=== PATIENT | female | born 1950 | race Caucasian/White ===

== ENCOUNTER 2018-08-03 07:49 | Day surgery (SDC) | payer MEDICARE, MEDICAID ==
[~2018-08-03 07:49] MED LIST: Lactated Ringers 1,000 ML IV SCH; Sodium Chloride 0.9% 10 ML Syringe FLUSH PRN
[2018-08-03] MEDS ORDERED: Sodium Chloride 0.9% 10 ML Syringe FLUSH PRN (08:00)
[2018-08-03] MEDS ORDERED: Midazolam 1 MG/ML 2 ML SDV ONE (08:02)
[2018-08-03] MEDS ORDERED: Propofol 200 MG/20 ML SDV ONE (08:03)
[2018-08-03] MEDS ORDERED: fentaNYL 250 MCG/5 ML SDV ONE (08:03)
[2018-08-03] MEDS ORDERED: Albuterol 0.083% 2.5 MG/3 ML Neb Soln NEB ONE (08:21)
[2018-08-03] MEDS: Lactated Ringers 1,000 ML IV SCH ×2 (08:38→11:05)
[2018-08-03] MEDS ORDERED: ceFAZolin 1 GM Vial IVPUSH ONE (09:00)
[2018-08-03] MEDS ORDERED: Succinylcholine 200 MG/10 ML MDV IV ONE (09:00)
[2018-08-03] MEDS ORDERED: Neostigmine Methylsulfate 10 MG/10 ML MDV IVPUSH ONE (09:00)
[2018-08-03] MEDS ORDERED: Glycopyrrolate 0.2 MG/ML SDV IVPUSH ONE (09:00)
[2018-08-03] MEDS ORDERED: Rocuronium 100 MG/10 ML MDV IV ONE (09:00)
[2018-08-03] MEDS ORDERED: ceFAZolin 1 GM Vial ONE (09:25)
[2018-08-03] MEDS ORDERED: Dexamethasone 10 MG/ML SDV IVPUSH ONE (10:00)
[2018-08-03] MEDS ORDERED: fentaNYL 100 MCG/2 ML SDV IVPUSH PRN (10:01)
[2018-08-03] MEDS ORDERED: Morphine 2 MG/ML Syringe IVPUSH PRN (10:01)
[2018-08-03] MEDS ORDERED: Ondansetron 4 MG/2 ML SDV IVPUSH PRN (10:01)
[2018-08-03] MEDS ORDERED: Ketorolac 30 MG/ML SDV IVPUSH ONE (10:18)
--- NOTE | 2018-08-03 10:21 | PCM.OPNOTE ---
- General Post-Op/Procedure Note Date of Surgery/Procedure: 08/03/18 Operative Procedure(s): Repair Ventral incisional Hernia Findings: moderate sized midline upper abdominal ventral hernia with preperitoneal fat protruding through it Pre Op Diagnosis: Ventral incisional Hernia Post-Op Diagnosis: Same Anesthesia Technique: General ET Tube Primary Surgeon: Albino Silva Pathology: Hernia sac Output, Urine Amount: 0 EBL in mLs: 20 Complications: None Condition: Good Free Text/Narrative:: Intake & Output 08/02/18 08/03/18 08/03/18 22:59 06:59 14:59 Intake Total 900 Balance 900
[2018-08-03] MEDS ORDERED: Morphine 4 MG/ML Syringe IVPUSH ONE (10:53)
[2018-08-03] MEDS ORDERED: fentaNYL 100 MCG/2 ML SDV IVPUSH ONE (11:10)
[2018-08-03] MEDS ORDERED: Meperidine PF 50 MG/ML Amp IVPUSH ONE (11:37)
[2018-08-03] MEDS ORDERED: hydrOXYzine HCl 50 MG/ML SDV IM ONE (11:53)
--- NOTE | 2018-08-03 15:24 | HP ---
HISTORY OF PRESENT ILLNESS: This 67-year-old female presents today for repair of a ventral incisional hernia. She underwent a cholecystectomy in the past and as part of this operation had an upper abdominal incision. She has developed a bulge in the area of this incision, primarily superior and to the right of the scar. This was initially noted very soon after the gallbladder surgery and has persisted. PAST MEDICAL HISTORY: Includes history of bipolar disorder, diagnoses of anxiety and depression, as well as chronic low back pain. PAST SURGICAL HISTORY: Other previous surgeries include a hysterectomy and appendectomy. HABITS: She is a former smoker. ALLERGIES: She is allergic to aspirin and penicillin. FAMILY HISTORY: Unchanged. SOCIAL HISTORY: Unchanged. PHYSICAL EXAMINATION: VITAL SIGNS: Temperature is 98.4, pulse 86, blood pressure is 115/80. GENERAL: The patient is an adult female. She in no acute distress. HEAD: Normocephalic. HEART: Regular. LUNGS: Clear. No wheezing is noted at this time. ABDOMEN: Soft. There is a palpable mass in the upper mid abdomen, just to the right of the midline. This was just superior to a healed surgical scar in the upper mid abdomen. This is mildly tender. The location of this is confirmed with the patient and it is marked preoperatively. No other abdominal masses are noted. EXTREMITIES: Show no edema. IMPRESSION: 1. Ventral incisional hernia. 2. History of bipolar disorder. 3. Previous smoker. PLAN: Repair of ventral incisional hernia. Informed consent. I have discussed the proposed operative procedure with the patient; reviewed indications, options, and risks. Also reviewed the possible need to place mesh. She appears to understand. Her surgical options have been discussed. She agrees to proceed with an open approach to this hernia repair today. OFELIA Silva MD /[id number]
--- NOTE | 2018-08-03 16:45 | OR ---
Date of Procedure: 08/03/2018 PREOPERATIVE DIAGNOSIS: Ventral incisional hernia. POSTOPERATIVE DIAGNOSIS: Ventral incisional hernia. OPERATION PERFORMED: Repair of ventral incisional hernia with mesh. INDICATIONS FOR SURGERY: This 67-year-old female has developed a symptomatic bulge in the upper portion of her abdomen. This is in an area where she has had previous abdominal surgery. Symptoms and findings were consistent with a ventral incisional hernia, and she comes for elective repair. FINDINGS: In the mid upper abdomen, the patient has a fascial defect in the area of a prior surgical scar. This fascial defect is approximately 5 x 4 cm in size. Through this defect is protruding preperitoneal fat, although there is no evidence of bowel involvement. The surrounding fascia appears of good quality. DESCRIPTION OF PROCEDURE: The patient was taken to the operating room. She was given general endotracheal anesthesia. The abdomen was sterilely prepped and draped. A vertical midline abdominal incision was made over the area of the hernia. Dissection proceeded down to the underlying fascia and the hernia defect was identified. The hernia sac was carefully from the surrounding subcutaneous tissue and the hernia fascial edges identified circumferentially. The fascia was cleared for several centimeters around this defect and appeared solid without any additional defects. The hernia sac was then incised with cautery at the level of the fascia and the hernia contents were amputated above clamps with ties of 2-0 Vicryl used for the vascular pedicles. The edges of the hernia defect were trimmed to provide a good surface for repair and then the hernia defect was closed with interrupted #1 Prolene using a Smead-Ryder suturing technique. Incorporated in these repair sutures on the anterior surface of the fascia was a piece of polypropylene mesh for reinforcement of the repair. This created a secure and reinforced closure of this hernia defect. The peripheral edges of the mesh were trimmed and then tacked down to the underlying fascia with a running 2-0 Vicryl. The wound was irrigated with Ancef and saline solution, which had been used to soak the mesh prior to its placement. The subcutaneous tissue was then approximated with interrupted 4-0 Vicryl and it was also tacked down to the underlying fascia with this suture. The skin was closed with a running 4-0 Vicryl subcuticular stitch. Steri-Strips and benzoin were applied. Antibiotic ointment followed by sterile dressing was placed. The patient was then awakened, extubated, and taken from the operating room in satisfactory condition. ESTIMATED BLOOD LOSS: 20 mL. COMPLICATIONS: None. PROGNOSIS: Good. OFELIA Silva MD /[id number]
[2018-08-04] MEDS ORDERED: ceFAZolin 1 GM Vial IVPUSH ONE (10:45)
== END 2018-08-03 13:38 | disposition home or self-care (01) ==
LOC: LL.SDS 07:49
PROVIDERS: ATTEND Surgery
DX: K43.2 Incisional hernia without obstruction or gangrene (principal); F41.9 Anxiety disorder, unspecified; F32.9 Major depressive disorder, single episode, unspecified; Z88.0 Allergy status to penicillin; Z88.6 Allergy status to analgesic agent; Z90.49 Acquired absence of other specified parts of digestive tract; Z87.891 Personal history of nicotine dependence; Z79.899 Other long term (current) drug therapy
CPT/HCPCS: 94640; C1781; J0330; J0690; J1100; J1885; J2175; J2250; J2270; J2405; J2704; J2710; J3010; J3410; J3490; J7120; J7613-GY

== ENCOUNTER 2018-12-21 10:05 | Day surgery (SDC) | payer MEDICARE, OTHER ==
[2018-12-21] MEDS ORDERED: Sodium Chloride 0.9% 10 ML Syringe FLUSH PRN (10:15)
[2018-12-21] MEDS ORDERED: Lactated Ringers 1,000 ML IV SCH (10:15)
[2018-12-21] MEDS ORDERED: Albuterol/Ipratropium 3.0-0.5 MG/3 ML Neb Soln NEB ONE (10:52)
--- NOTE | 2018-12-21 11:03 | PCM.PN ---
- General Info Date of Service: 12/21/18 - Review of Systems Systems Review Comment:: 68 y/o female here for colonoscopy. She has a 2 year history of diarrhea. She has also had a previous Sigmoid colon resection for diverticular disease. She is medically stable to proceed. Her recent history and physical is reviewed and no significant changes are noted. I have discussed the proposed colonoscopy with the patient. She agrees to proceed accepting risks. - Patient Data Vitals - Most Recent: Last Vital Signs Temp 98.1 F 12/21/18 10:26 Pulse 84 12/21/18 10:26 Resp 20 12/21/18 10:26 BP 147/87 H 12/21/18 10:26 Pulse Ox 96 12/21/18 10:26 Weight - Most Recent: 90.718 kg Med Orders - Current: Current Medications Lactated Ringer's (Ringers, Lactated) 1,000 mls @ 125 mls/hr IV ASDIRECTED STEWART Last Admin: 12/21/18 10:43 Dose: 125 mls/hr Sodium Chloride (Saline Flush) 10 ml FLUSH ASDIRECTED PRN PRN Reason: Keep Vein Open Discontinued Medications Albuterol/Ipratropium (Duoneb 3.0-0.5 Mg/3 Ml) 3 ml NEB ONETIME ONE Stop: 12/21/18 10:53 Last Admin: 12/21/18 10:55 Dose: 3 ml - Problem List Review Problem List Initiated/Reviewed/Updated: Yes - My Orders Last 24 Hours: My Active Orders 12/21/18 10:15 Patient Status [ADT] Routine Peripheral IV Care [RC] . DIRECTED Verify Patient Consent Obtain [RC] ASDIRECTED Lactated Ringers [Ringers, Lactated] 1,000 ml IV ASDIRECTED Sodium Chloride 0.9% [Saline Flush] 10 ml FLUSH ASDIRECTED PRN Peripheral IV Insertion Adult [OM.PC] Routine - Assessment Assessment:: History of diarrhea - Plan Plan:: Colonoscopy
[2018-12-21] MEDS ORDERED: Propofol 200 MG/20 ML SDV ONE (11:05)
--- NOTE | 2018-12-21 11:44 | PCM.OPNOTE ---
- General Post-Op/Procedure Note Date of Surgery/Procedure: 12/21/18 Operative Procedure(s): Colonoscopy with Polypectomy and Biopsy Findings: Sigmoid Colon Polyp Diverticulosis without acute inflammation Hemorrhoids Prior Sigmoid Colectomy with normal appearing anastomosis Pre Op Diagnosis: History of Diarrhea Post-Op Diagnosis: Colon Polyp. Diverticulosis. Hemorrhoids Anesthesia Technique: [facility] [place] Primary Surgeon: Albino Silva Pathology: Colon Polyp Biopsies of Right and Left Colon EBL in mLs: 3 Complications: None Condition: Good
--- NOTE | 2018-12-21 17:13 | OR ---
Date of Procedure: 12/21/2018 PREOPERATIVE DIAGNOSIS: History of diarrhea. POSTOPERATIVE DIAGNOSES: 1. Sigmoid colon polyp. 2. Left colon diverticulosis. 3. External and internal hemorrhoids. OPERATIONS PERFORMED: Colonoscopy with polypectomy and biopsy. INDICATIONS FOR SURGERY: This 68-year-old female was referred for colonoscopy. She has been having some symptoms of diarrhea over the past 2 years. She reports a history of having had a prior sigmoid colon resection. FINDINGS: In the patient's sigmoid colon, 18 cm from the anal verge, there is a semi-pedunculated polyp, 8 mm in size with a smooth surface. No other polyps were seen, but the patient does have extensive diverticulosis with multiple pockets noted in the left colon. These do not appear to be acutely inflamed or otherwise complicated. The patient has had a prior sigmoid colon resection and the anastomosis is widely patent. She also has moderate-sized internal and external hemorrhoids. DESCRIPTION OF PROCEDURE: The patient was taken to the operating room. She was given intravenous sedation and with her in the left lateral decubitus position, digital rectal exam was performed showing no rectal masses. The Olympus colonoscope was inserted into the rectum. Retroflexed examination of the rectal canal was performed. The scope was advanced to the sigmoid colon polyp, which was removed with a cautery snare and retrieved into a polyp trap. The scope was then further advanced through the entire length of the colon until the cecum was reached. Cecal acquisition was confirmed by noting the normal internal cecal anatomy including the appendiceal orifice and the ileocecal valve. The light was also noted to transilluminate the abdominal wall in the right lower quadrant. After examining the cecum, the scope was slowly withdrawn sequentially re-examining the colonic segments. During withdrawal of the scope, random biopsies of the right and left colon were taken because of the patient's symptoms of diarrhea. After the exam had been completed and with no sign of any complication, the scope was removed, and the patient was taken from the operating room in satisfactory condition. ESTIMATED BLOOD LOSS: 3 mL. COMPLICATIONS: None. PROGNOSIS: Good. OFELIA Silva MD /[id number]
== END 2018-12-21 12:44 | disposition home or self-care (01) ==
LOC: LL.SDS 10:05
PROVIDERS: ATTEND Surgery
DX: D12.5 Benign neoplasm of sigmoid colon (principal); K57.30 Diverticulosis of large intestine without perforation or abscess without bleeding; K64.4 Residual hemorrhoidal skin tags; K64.8 Other hemorrhoids; E78.00 Pure hypercholesterolemia, unspecified; E66.9 Obesity, unspecified; J45.20 Mild intermittent asthma, uncomplicated; F31.9 Bipolar disorder, unspecified; F41.9 Anxiety disorder, unspecified; F43.10 Post-traumatic stress disorder, unspecified; G89.4 Chronic pain syndrome; M47.26 Other spondylosis with radiculopathy, lumbar region; M48.02 Spinal stenosis, cervical region; Z68.36 Body mass index [BMI] 36.0-36.9, adult; Z88.0 Allergy status to penicillin; Z88.6 Allergy status to analgesic agent; Z90.49 Acquired absence of other specified parts of digestive tract; Z79.1 Long term (current) use of non-steroidal anti-inflammatories (NSAID); Z79.899 Other long term (current) drug therapy
CPT/HCPCS: 94640; J2704; J7120; J7620-GY

== ENCOUNTER 2023-02-13 22:23 | Observation (INO) | payer MEDICARE, MEDICAID ==
[2023-02-13] MEDS ORDERED: Sodium Chloride 0.9% 10 ML Syringe FLUSH PRN (22:42)
[2023-02-13 22:48] LABS: BASOPHILS ABSOLUTE AUTO 0.06 K/uL (0.00-0.20); BASOPHILS PERCENT AUTO 0.7 % (0.0-2.0); EOSINOPHILS ABSOLUTE AUTO 0.38 K/uL (0.00-0.50); EOSINOPHILS PERCENT AUTO 4.6 % (0.0-5.0); HEMATOCRIT 41.1 % (34.0-46.0); HEMOGLOBIN 13.2 g/dL (11.7-15.5); LYMPHOCYTES ABSOLUTE AUTO 2.08 K/uL (0.50-3.50); LYMPHOCYTES PERCENT AUTO 25.1 % (10.0-50.0); MEAN CORPUSCULAR HGB CONC 32.1 g/dL (31.7-36.0); MEAN CORPUSCULAR VOLUME 99.5 fL (84.0-98.0); MONOCYTES ABSOLUTE AUTO 0.63 K/uL (0.00-1.00); MONOCYTES PERCENT AUTO 7.6 % (2.0-14.0); NEUTROPHILS ABSOLUTE AUTO 5.14 K/uL (1.40-7.00); PLATELET COUNT,PLT 304 K/uL (150-350); RED BLOOD CELL COUNT 4.13 M/uL (3.77-5.09); RED CELL DISTRIBUTION WIDTH 12.5 % (11.2-14.1); WHITE BLOOD CELL COUNT,WBC 8.3 K/uL (4.0-10.2)
[2023-02-13 22:59] LABS: ALANINE AMINOTRANSFERASE,ALT 23 U/L (12-78); ALBUMIN 3.6 g/dL (3.4-5.0); ALKALINE PHOSPHATASE 85 IU/L (46-116); ANION GAP 7.8 meq/L (7-15); ASPARTATE AMNIOTRANSFERASE,AST 21 U/L (15-37); BILIRUBIN TOTAL 0.4 mg/dL (0.2-1.0); BLOOD UREA NITROGEN,BUN 28 mg/dL (7-18); CALCIUM 8.9 mg/dL (8.5-10.1); CARBON DIOXIDE,CO2 27.2 mmol/L (21.0-32.0); CHLORIDE,CL 104 mmol/L (98-107); CREATININE 0.97 mg/dL (0.51-1.17); ETHANOL BLOOD MEDICAL 0.132 g/dL (0.000-0.080); GLUCOSE RANDOM 99 mg/dL (70-99); MAGNESIUM 2.2 mg/dL (1.8-2.4); POTASSIUM,K 3.9 mmol/L (3.5-5.1); PROTEIN TOTAL,TP 6.8 g/dL (6.4-8.2); SODIUM,NA 139 mmol/L (136-145)
[2023-02-13 23:01] LABS: ESTIMATED GFR 62 mL/min (>=60)
[2023-02-13 23:12] LABS: APPEARANCE,URINE CLEAR; BILIRUBIN,URINE NEGATIVE (NEGATIVE); COLOR,URINE YELLOW; GLUCOSE,URINE NEGATIVE (NEGATIVE); KETONES,URINE NEGATIVE (NEGATIVE); LEUKOCYTE ESTERASE,URINE TRACE (NEGATIVE); NITRITE,URINE NEGATIVE (NEGATIVE); OCCULT BLOOD,URINE NEGATIVE (NEGATIVE); PH,URINE 5.5 (5.0-9.0); PROTEIN,URINE NEGATIVE (NEGATIVE); UROBILINOGEN,URINE 0.2 E.U./dL (0.2-1.0)
[2023-02-13 23:17] LABS: BACTERIA,URINE NOT SEEN /HPF (NONE TO FEW); EPITHELIAL CELLS,URINE NOT SEEN /LPF; MUCUS,URINE NOT SEEN /LPF (NEGATIVE); RBC,URINE 0-5 /HPF; WBC,URINE 0-5 /HPF
[2023-02-14] MEDS ORDERED: Ondansetron 4 MG/2 ML SDV IVPUSH PRN (00:51)
[2023-02-14] MEDS: Acetaminophen 325 MG Tab PO PRN ×5 (01:36→17:25)
[2023-02-14] MEDS ORDERED: Sodium Chloride 0.9% 1,000 ML IV SCH (01:45)
[2023-02-14] MEDS: Albuterol/Ipratropium 3.0-0.5 MG/3 ML Neb Soln INH SCH ×2 (14:10→20:35)
[2023-02-14] MEDS: Baclofen 10 MG Tab PO PRN ×2 (14:12→20:35)
[2023-02-14] MEDS: Acyclovir 200 MG Cap PO SCH (17:23)
[2023-02-14] MEDS: Gabapentin 300 MG Cap PO SCH ×2 (17:24→20:35)
[2023-02-14] MEDS: busPIRone 15 MG Tab PO SCH (17:24)
[2023-02-14] MEDS ORDERED: traZODone 50 MG Tab PO SCH (20:00)
[2023-02-14] MEDS: Diclofenac Sodium 1% Gel 100 GM Tube TOP PRN (20:36)
[2023-02-15] MEDS: Acetaminophen 325 MG Tab PO PRN ×3 (02:33→10:53)
[2023-02-15] MEDS: Diclofenac Sodium 1% Gel 100 GM Tube TOP PRN (03:55)
[2023-02-15] MEDS ORDERED: Baclofen 10 MG Tab PO PRN (05:49)
[2023-02-15 07:21] LABS: BASOPHILS ABSOLUTE AUTO 0.04 K/uL (0.00-0.20); BASOPHILS PERCENT AUTO 0.5 % (0.0-2.0); EOSINOPHILS ABSOLUTE AUTO 0.25 K/uL (0.00-0.50); EOSINOPHILS PERCENT AUTO 3.4 % (0.0-5.0); HEMATOCRIT 40.7 % (34.0-46.0); LYMPHOCYTES ABSOLUTE AUTO 1.37 K/uL (0.50-3.50); LYMPHOCYTES PERCENT AUTO 18.7 % (10.0-50.0); MEAN CORPUSCULAR HEMOGLOBIN 31.8 pg (28.2-33.3); MEAN CORPUSCULAR HGB CONC 31.9 g/dL (31.7-36.0); MEAN CORPUSCULAR VOLUME 99.5 fL (84.0-98.0); MONOCYTES ABSOLUTE AUTO 0.55 K/uL (0.00-1.00); MONOCYTES PERCENT AUTO 7.5 % (2.0-14.0); NEUTROPHILS ABSOLUTE AUTO 5.12 K/uL (1.40-7.00); NEUTROPHILS PERCENT AUTO 69.9 % (45.0-80.0); PLATELET COUNT,PLT 285 K/uL (150-350); RED BLOOD CELL COUNT 4.09 M/uL (3.77-5.09); RED CELL DISTRIBUTION WIDTH 12.5 % (11.2-14.1); WHITE BLOOD CELL COUNT,WBC 7.3 K/uL (4.0-10.2)
[2023-02-15 07:55] LABS: CALCIUM 8.9 mg/dL (8.5-10.1); CARBON DIOXIDE,CO2 28.1 mmol/L (21.0-32.0); CREATININE 0.79 mg/dL (0.51-1.17); EST CRCL DRUG DOSING (CG) 52.46 mL/min
[2023-02-15] MEDS ORDERED: Sertraline 50 MG Tab PO SCH (08:00)
[2023-02-15 08:08] LABS: ANION GAP 11.9 meq/L (7-15)
[2023-02-15] MEDS: busPIRone 15 MG Tab PO SCH (08:34)
[2023-02-15] MEDS: Albuterol/Ipratropium 3.0-0.5 MG/3 ML Neb Soln INH SCH (08:34)
[2023-02-15] MEDS: Gabapentin 300 MG Cap PO SCH ×2 (08:35→11:59)
[2023-02-15] MEDS: Acyclovir 200 MG Cap PO SCH (08:36)
== END 2023-02-15 13:05 | disposition home or self-care (01) ==
LOC: LL.ED 22:23 → LL.MS 23:25
PROVIDERS: ADMIT Emergency Medicine; ATTEND Emergency Medicine
DX: S09.90XA Unspecified injury of head, initial encounter (principal); S01.01XA Laceration without foreign body of scalp, initial encounter; F10.129 Alcohol abuse with intoxication, unspecified; E78.00 Pure hypercholesterolemia, unspecified; J44.9 Chronic obstructive pulmonary disease, unspecified; M54.9 Dorsalgia, unspecified; G89.29 Other chronic pain; M81.0 Age-related osteoporosis without current pathological fracture; F32.A Depression, unspecified; F43.10 Post-traumatic stress disorder, unspecified; E66.9 Obesity, unspecified; Z79.1 Long term (current) use of non-steroidal anti-inflammatories (NSAID); Z88.0 Allergy status to penicillin; Z88.8 Allergy status to other drugs, medicaments and biological substances; Z87.891 Personal history of nicotine dependence; Y90.6 Blood alcohol level of 120-199 mg/100 ml; W10.9XXA Fall (on) (from) unspecified stairs and steps, initial encounter
CPT/HCPCS: 12002; 36415; 70450; 71045; 72125; 72170; 80048; 80053; 80307; 81001; 83605; 83735; 85025; 87086; 93005; 94640; 96361; 96374; 97162-GP; 97530-GP; 99285; A9270-GY; G0378; J2405; J3490; J7030; J7620-GY

== ENCOUNTER 2024-03-13 11:33 | Emergency (ER) | payer MEDICARE | END 2024-03-13 13:05 | disposition home or self-care (01) | LOC: LL.ED 11:33 | DX: S89.92XA Unspecified injury of left lower leg, initial encounter (principal); J44.9 Chronic obstructive pulmonary disease, unspecified; E78.00 Pure hypercholesterolemia, unspecified; E66.9 Obesity, unspecified; Z90.49 Acquired absence of other specified parts of digestive tract; Z90.710 Acquired absence of both cervix and uterus; Z87.891 Personal history of nicotine dependence; Z79.899 Other long term (current) drug therapy; Z88.0 Allergy status to penicillin; Z88.5 Allergy status to narcotic agent; X50.9XXA Other and unspecified overexertion or strenuous movements or postures, initial encounter | CPT/HCPCS: 73562-LT; 99283 ==